=== PATIENT | male | born 1970 | race Caucasian/White ===

== ENCOUNTER 2016-11-08 12:51 | Emergency (ER) | payer OTHER ==
[2016-11-08] MEDS ORDERED: KETOROLAC 60 MG/2 ML VIAL IM STA (15:16)
[2016-11-08] MEDS ORDERED: LIDOCAINE PATCH 5% TOP STA (15:16)
[2016-11-08] MEDS ORDERED: oxyCOD/ACETAMIN 5 MG/325 MG TABLET PO STA (15:16)
[2016-11-08] MEDS ORDERED: CYCLOBENZAPRINE 10 MG TABLET PO STA (15:16)
[2016-11-08] MEDS ORDERED: oxyCOD/ACETAMIN 5 MG/325 MG TABLET PO ONE (15:52)
[2016-11-08] MEDS ORDERED: CYCLOBENZAPRINE 10 MG TABLET PO ONE (15:52)
[2016-11-08] MEDS ORDERED: KETOROLAC 60 MG/2 ML VIAL ONE (15:52)
[2016-11-08] MEDS ORDERED: LIDOCAINE PATCH 5% TOP ONE (15:52)
--- NOTE | 2016-11-08 16:01 | XRAY Report ---
EXAM: LUMBAR SPINE RADIOGRAPHY EXAM DATE: 11/08/2016 03:44 PM. CLINICAL HISTORY: Back pain, feels like something shifted. COMPARISONS: None. TECHNIQUE: 3 views. FINDINGS: Alignment: Normal. No spondylolisthesis or scoliosis. Bones: Five [id number] lumbar vertebral bodies are present. Mild anterior wedging at T12 and L1, appear chronic and could be normal developmental variants. Acute compression fractures here are not excluded in the appropriate clinical setting. No comparison. Otherwise, no acute bone findings seen. Disks/facets: Moderate disk height loss and minimal endplate osteophytes at L4-L5. Moderate disk heig ht loss at L5-S1. Minimal endplate osteophytes laterally at L3-L4. Mild facet arthropathy at L5-S1 Soft Tissues: Unremarkable IMPRESSION: 1. Moderate degenerative disk disease with disk height loss at L4-L5 and L5-S1. Other degenerative ch anges as above. 2. Mild anterior wedging at T12 and L1, appear chronic and could be normal developmental variants. Ac oswaldo compression fractures here are not excluded in the appropriate clinical setting. No comparison. O therwise, no acute bone findings seen. [facility] Referring Provider Line: [phone] SITE ID: [id number]
[2016-11-08 16:22] VITALS: BP 153/96
--- NOTE | 2016-11-08 16:49 | ED Physician Documentation ---
History of Present Illness - Stated complaint Stated Complaint: BACK PX - Chief complaint Chief Complaint: Back Pain - Additonal information Additional information: hx from patient 45 male int back pain X 2 years started dureing a basketball games - felt llike something shifted then pain worse afetr reaching for tissues at home better with chiropracter occ came back seen PMD for same - no imaging up to [place] [facility] [place] exacerbation of pain cannot move 2/2 pain to lateral left leg no numbness or incont no abd pain no fever, denies surgery dental work IVDA Review of Systems Constitutional: denies: Fever, Chills Cardiac: denies: Chest pain / pressure GI: denies: Abdominal Pain : denies: Incontinent Musculoskeletal: reports: Back pain Neurologic: denies: Focal weakness (leg weak 2/2 pain), Numbness Endocrine: denies: Easy bruising / bleeding Immunocompromised: denies: Immunocompromised PD PAST MEDICAL HISTORY - Past Medical History Past Medical History: Yes Cardiovascular: Hypertension, High cholesterol Musculoskeletal: Chronic back pain - Past Surgical History Past Surgical History: Yes Cardiovascular: Coronary stent - Present Medications Home Medications: Ambulatory Orders Medication Instructions Recorded Confirmed Carisoprodol [Soma] 350 mg PO Q8H PRN #15 tablet 11/08/16 Ibuprofen [Motrin] 400 mg PO Q6H PRN #30 tablet 11/08/16 Lidocaine Patch 5% [Lidoderm Patch] 1 each TOP DAILY PRN #10 patch 11/08/16 Lisinopril 20 mg DAILY 11/08/16 11/08/16 Muscle Relaxant 11/08/16 Pravastatin [Pravachol] 10 mg DAILY 11/08/16 11/08/16 Propranolol [Inderal] 20 mg DAILY 11/08/16 11/08/16 Supplemental Blood Sugar Med 11/08/16 metFORMIN [Glucophage] 1,000 mg BID 11/08/16 11/08/16 - Allergies Allergies/Adverse Reactions: Allergies Allergy/AdvReac Type Severity Reaction Status Date / Time bee venom protein (honey bee) Allergy Hives Verified 11/08/16 13:03 dextromethorphan Hbr AdvReac Unknown Verified 11/08/16 13:04 [From NyQuil] doxylamine succinate * AdvReac Unknown Verified 11/08/16 13:04 [From NyQuil] pseudoephedrine HCl * AdvReac Unknown Verified 11/08/16 13:04 [From [facility]] - Social History Does the pt smoke?: No Smoking Status: Never smoker Does the pt drink ETOH?: Yes Does the pt have substance abuse?: No PD ED PE NORMAL - Vitals Vital signs reviewed: Yes - Neck Neck: Supple, no meningeal sign - Cardiac Cardiac: RRR - Respiratory Respiratory: No respiratory distress, Clear bilaterally - Abdomen Abdomen: Soft, Non tender, Other (no pulsatile mass) - Back Back: No spinal TTP (no focal bony TTP redness warmth or swelling, limited ROM 2 /2 pain) - Derm Derm: Normal color - Neuro Neuro: No motor deficit, No sensory deficit, Other (denies saddle anesthesia, hip flex knee ext foot dorsi/plantar and great toe ext all 5/5, patellar DTR 2/4 , no clonus, + SLR on L) Results - Vitals Vitals: Vital Signs - 24 hr 11/08/16 11/08/16 11/08/16 13:01 14:31 16:03 Temperature 36.6 C 36.4 C L Heart Rate 65 65 81 Respiratory 18 16 17 Rate Blood Pressure 174/100 H 156/98 H O2 Saturation 100 100 11/08/16 16:20 Temperature 36.2 C L Heart Rate 70 Respiratory 16 Rate Blood Pressure 153/96 H O2 Saturation 96 Oxygen O2 Source Room air - Rads (name of study) L spine Radiology: See rad report (possible mild age inde comp fx with an wedging T12L1 , no spondylolisthesis) Departure - Departure Disposition: 01 Home, Self Care Clinical Impression: Back pain Qualifiers: Back pain location: low back pain Chronicity: acute Back pain laterality: unspecified Sciatica presence: with sciatica Sciatica laterality: sciatica of left side Qualified Code(s): M54.42 - Lumbago with sciatica, left side Condition: Good Instructions: ED Low Back Pain Injury, ED Sciatica Prescriptions: Lidocaine Patch 5% [Lidoderm Patch] 1 each TOP DAILY PRN #10 patch PRN Reason: Pain Ibuprofen [Motrin] 400 mg PO Q6H PRN #30 tablet PRN Reason: Pain Carisoprodol [Soma] 350 mg PO Q8H PRN #15 tablet PRN Reason: muscle spasm Comments: The xrays show some degenerative changes and possible a mild old compression injury to the T12 and L1 spinal bones For today, your neurologic exam is normal and I think it is safe for you to go home with medications to ease the pain But please follow up with your PMD to discuss further imaging such as a MRI Also please get your blood pressure rechecked - it was a little bit high today Forms: Activity restrictions
== END 2016-11-08 17:24 | disposition home or self-care (01) ==
LOC: ED 12:51
DX: M54.42 Lumbago with sciatica, left side (principal); I10 Essential (primary) hypertension; G89.29 Other chronic pain; Z95.5 Presence of coronary angioplasty implant and graft
CPT/HCPCS: 72100; 96372; 99283; A9270